=== PATIENT | female | born 1950 | race Caucasian/White ===

== ENCOUNTER 2016-09-02 15:51 | Emergency (ER) | payer MEDICARE, BC | END 2016-09-02 16:43 | disposition home or self-care (01) | LOC: ER 15:51 | PROC: 3E0234Z Introduction of Serum, Toxoid and Vaccine into Muscle, Percutaneous Approach (ICD-10-PCS; principal; 2016-09-02) | DX: I83.92 Asymptomatic varicose veins of left lower extremity (principal); W25.XXXA Contact with sharp glass, initial encounter; Y92.009 Unspecified place in unspecified non-institutional (private) residence as the place of occurrence of the external cause; I10 Essential (primary) hypertension; Z23 Encounter for immunization | CPT/HCPCS: 73590; 90471; 90714; 99070; 99283; 99283-25 ==